=== PATIENT | male | born 1960 | race Caucasian/White ===

== ENCOUNTER 2024-05-16 08:26 | Day surgery (SDC) | payer BC ==
[~2024-05-16 08:26] MED LIST: Lactated Ringers 1,000 ML IV SCH
[2024-05-16] MEDS: Lactated Ringers 1,000 ML IV SCH (08:46)
[2024-05-16] MEDS ORDERED: Propofol 200 MG/20 ML SDV ONE ×2 (10:09→10:30)
[2024-05-16] MEDS ORDERED: fentaNYL 100 MCG/2 ML SDV ONE (10:09)
== END 2024-05-16 12:08 | disposition home or self-care (01) ==
LOC: VM.SDS 08:26
PROVIDERS: ATTEND Family Medicine
DX: Z12.11 Encounter for screening for malignant neoplasm of colon (principal); D12.0 Benign neoplasm of cecum; D12.3 Benign neoplasm of transverse colon; K57.30 Diverticulosis of large intestine without perforation or abscess without bleeding; K64.9 Unspecified hemorrhoids; R19.5 Other fecal abnormalities; E78.2 Mixed hyperlipidemia; E66.9 Obesity, unspecified; I12.9 Hypertensive chronic kidney disease with stage 1 through stage 4 chronic kidney disease, or unspecified chronic kidney disease; N18.32 Chronic kidney disease, stage 3b; Z79.2 Long term (current) use of antibiotics; Z79.899 Other long term (current) drug therapy; Z68.34 Body mass index [BMI] 34.0-34.9, adult
CPT/HCPCS: 00811; J2704; J3010; J7120